=== PATIENT | female | born 1935 | race Caucasian/White ===

== ENCOUNTER 2017-03-02 17:48 | Outpatient (CLI) | payer MEDICARE, BC ==
--- NOTE | 2017-03-03 08:41 | XRAY Report ---
THREE-VIEW BILATERAL SHOULDERS: 03/02/2017 CLINICAL INDICATION: Shoulder pain. FINDINGS: Internal and external rotational views and scapular Y views of the bilateral shoulders wer e obtained. There is right worse than left glenohumeral osteoarthritis. Both humeral heads appear h igh-riding, suggestive of chronic rotator cuff tears. There is no evidence of fracture or dislocatio n. IMPRESSION: RIGHT WORSE THAN LEFT OSTEOARTHRITIS, WITH LIKELY BILATERAL CHRONIC ROTATOR CUFF TEARS. JOB #: [id number] EXT JOB #:[id number]
== END 2017-03-02 17:49 | disposition home or self-care (01) ==
LOC: DI 17:48
PROVIDERS: ATTEND Nurse Practitioner Family
DX: M19.012 Primary osteoarthritis, left shoulder (principal); M19.011 Primary osteoarthritis, right shoulder

== ENCOUNTER 2017-03-09 09:36 | Outpatient (CLI) | payer MEDICARE, BC ==
[2017-03-09] MEDS ORDERED: IOPAMIDOL-300 50 ML VIAL ONE (09:58)
[2017-03-09] MEDS ORDERED: IOPAMIDOL-300 100 ML VIAL ONE (09:58)
[2017-03-09] MEDS ORDERED: IOPAMIDOL-300 50 ML VIAL PO ONE (11:44)
[2017-03-09] MEDS ORDERED: IOPAMIDOL-300 100 ML VIAL IVP ONE (11:45)
--- NOTE | 2017-03-09 12:31 | CT Report ---
CT ABDOMEN AND PELVIS WITH CONTRAST: 03/09/2017 CLINICAL INDICATION: Abdominal pain. TECHNIQUE: Axial CT images of the abdomen and pelvis were obtained with 100 mL Isovue-300 intravenously as well as oral contrast. In accordance with CT protocol optimization, one or more of the following dose reduction techniques were utilized for this exam: automated exposure control, adjustment of mA and/or KV based on patient size, or use of iterative reconstructive technique. No previous CT is available for comparison. FINDINGS: Limited evaluation of the lung bases demonstrates mild atelectasis. Abdomen: The liver, spleen, pancreas, kidneys, and adrenal glands are unremarkable. The gallbladder is surgically absent. No bowel dilatation, free gas, or free fluid is present. No adenopathy is present. There is a splenule anterior to the inferior spleen. Multiple small anterior abdominal wall hernias are present, with hernia necks measuring up to 1 cm. These hernias contain fat. No bowel herniation is identified. Pelvis: Sigmoid diverticulosis is present, without CT evidence of diverticulitis. No pelvic adenopathy or free fluid is present. The pelvic organs appear unremarkable. Osseous structures demonstrate degenerative changes. IMPRESSION: MULTIPLE SMALL ANTERIOR ABDOMINAL WALL HERNIAS, CONTAINING FAT, WITHOUT EVIDENCE OF BOWEL HERNIATION. JOB #: [id number] EXT JOB #: [id number] SHAHANA
== END 2017-03-09 09:37 | disposition home or self-care (01) ==
LOC: LAB 09:36
PROVIDERS: ATTEND Nurse Practitioner Family
DX: K43.9 Ventral hernia without obstruction or gangrene (principal); I10 Essential (primary) hypertension
CPT/HCPCS: 36415; 74177; 82565; Q9967

== ENCOUNTER 2017-03-30 13:08 | Outpatient (CLI) | payer MEDICARE, BC ==
--- NOTE | 2017-03-31 08:47 | DEXA Report ---
DEXA: 03/30/2017 CLINICAL INDICATION: Osteopenia. TECHNIQUE: Dual energy x-ray absorptiometry (DXA) was performed on a [employer] system. Regions measured are the AP spine, femoral neck, and, if needed, forearm. COMPARISON: None. In accordance with the International Society for Clinical Densitometry (ISCD) guidelines, data from previous exams may be reanalyzed using current recommendations and techniques. This is done to allow a more accurate basis for comparison with the current study. FINDINGS Data for the lumbar spine is as follows: REGION BMD (g/cm/cm) T-SCORE Z-SCORE L1 0.976 -1.3 0.2 L2 0.950 -2.1 -0.6 L3 1.080 -1.0 0.5 L4 1.160 -0.3 1.1 TOTAL 1.037 -1.2 0.3 NOTE: All evaluable vertebrae are used for classification. Data for the hip is as follows: REGION BMD (g/cm/cm) T-SCORE Z-SCORE Neck 0.727 -2.2 -0.3 TOTAL 0.715 -2.3 -0.5 NOTE: The femoral neck or total proximal femur, whichever is lowest, is used for classification. IMPRESSION: THE WHO CLASSIFICATION BASED ON THE INTERNATIONAL REFERENCE STANDARD IS OSTEOPENIA. FRACTURE RISK IS INCREASED. RECOMMENDATION: Patients with diagnosis of osteoporosis or osteopenia should have regular bone mineral density assessment. For those eligible for Medicare, routine testing is allowed once every 2 years. Testing frequency can be increased for patients who have rapidly progressing disease or for those who are receiving medical therapy to restore bone mass. COMMENT: World Health Organization (WHO) definitions for osteoporosis and osteopenia: NORMAL BMD: T-score at -1.0 or higher, fracture risk is low. OSTEOPENIA BMD: T-score between -1.0 and -2.5, fracture risk is increased. OSTEOPOROSIS BMD: T-score at -2.5 or lower, fracture risk high. National Osteoporosis Foundation recommends: 1. Obtain adequate dietary calcium (at least 1200 mg per day) and vitamin D (400 -800 international units per day). 2. Participate, as appropriate, in regular weightbearing and muscle- strengthening exercise. 3. Avoid tobacco use and reduce alcohol and caffeine intake. 4. For more detailed information see the website at www.NOF.org. MTDD
== END 2017-03-30 13:09 | disposition home or self-care (01) ==
LOC: DI 13:08
PROVIDERS: ATTEND Nurse Practitioner Family
DX: M85.89 Other specified disorders of bone density and structure, multiple sites (principal); N95.8 Other specified menopausal and perimenopausal disorders
CPT/HCPCS: 77080

== ENCOUNTER 2017-03-30 13:08 | Outpatient (CLI) | payer MEDICARE, BC ==
--- NOTE | 2017-03-31 14:04 | Mammography Report ---
DIGITAL SCREENING MAMMOGRAM: 03/30/2017 CLINICAL INDICATION: An 82-year-old with history of benign biopsies for screening. COMPARISON: 12/2012, 05/2011, 12/2009 TECHNIQUE: Routine CC and MLO projections were obtained of the breasts. FINDINGS: The breasts again demonstrate scattered fibroglandular densities bilaterally. Positioning on the right is limited by patient's right shoulder mobility issues. Coarse and punctate, typically benign calcifications are present. Biopsy marker in the right breast is stable. No suspicious mass es, clustered microcalcifications, or regions of architectural distortion are identified. IMPRESSION: BENIGN FINDINGS. RECOMMENDATION: Routine annual screening unless otherwise clinically indicated. BIRADS CATEGORY 2 - BENIGN FINDINGS. STANDARD QUALIFYING STATEMENTS 1. This examination was reviewed with the aid of Computer-Aided Detection (CAD). 2. A negative or benign imaging report should not delay biopsy if clinically suspicious findings are present. Consider surgical consultation if warranted. More than 5% of cancers are not identified by i maging. 3. Dense breasts may obscure an underlying neoplasm. JOB #: [id number] EXT JOB #:[id number]
== END 2017-03-30 13:09 | disposition home or self-care (01) ==
LOC: DI 13:08
PROVIDERS: ATTEND Nurse Practitioner Family
DX: Z12.31 Encounter for screening mammogram for malignant neoplasm of breast (principal)
CPT/HCPCS: 77067

== ENCOUNTER 2017-04-15 10:58 | Emergency (ER) | payer MEDICARE, BC ==
[2017-04-15 11:39] VITALS: BP 123/79
[2017-04-15] MEDS ORDERED: DEXAMETHASONE 10 MG/ML VIAL PO STA (13:14)
--- NOTE | 2017-04-15 13:18 | ED Physician Documentation ---
PD HPI LOWER EXT INJURY - Stated complaint Stated Complaint: R LEG PX - Chief complaint Chief Complaint: Ext Problem - History obtained from History obtained from: Patient, Family - History of Present Illness PD HPI LOW EXT INJURY LOCATION: Right, Knee Type of injury: Other (standing a lot to fix food for thanksgivning) Where injury occurred: Home Timing - onset: How many days ago (2) Timing - duration: Days (2) Timing - details: Abrupt onset, Still present Improved by: Rest, Immobilization Worsened by: Moving, Palpating Associated symptoms: Swelling. No: Weakness, Numbness Contributing factors: No: Anticoagulated Similar symptoms before: Diagnosis (arthritis to the right knee) Recently seen: Not recently seen - Additional information Additional information: 82-year-old female with a history of arthritis to the right knee has developed markedly increased pain in her knee after standing to prepare food for Thanksgiving 2 days ago. She awoke yesterday morning with pain that was severe enough that she did take some leftover oxycodone. She has pain with weightbearing and pain with movement that is centered at the knee and she has pain all the way to her hip and from her foot up to her calf. She does not have pain up the back of her calf and she does not have swelling of her foot or ankle. Review of Systems Constitutional: denies: Fever Eyes: denies: Decreased vision Ears: denies: Ear pain Nose: denies: Congestion Throat: denies: Sore throat Respiratory: denies: Cough GI: denies: Vomiting PD PAST MEDICAL HISTORY - Past Medical History Past Medical History: Yes Cardiovascular: Hypertension Endocrine/Autoimmune: HyPOthyroidism, Other GI: GERD, Chronic constipation : Incontinence, Other Musculoskeletal: Rheumatoid arthritis, Other Derm: None - Past Surgical History Past Surgical History: Yes General: Cholecystectomy, Colonoscopy, EGD Ortho: Knee replacement /ASSEM[employer]ER [employer]CH[employer] ORDNANCE: Other - Present Medications Home Medications: Ambulatory Orders Medication Instructions Recorded Confirmed Cholecalciferol (Vitamin D3) 2,000 unit PO DAILY 08/01/13 11/06/13 [Vitamin D3] Folic Acid 1 mg PO DAILY 08/01/13 11/07/13 Levothyroxine Sodium [Synthroid] 125 mcg PO DAILY 08/01/13 11/06/13 Lisinopril [Zestril] 40 mg PO DAILY 08/01/13 11/07/13 Omeprazole [PriLOSEC] 20 mg PO DAILY 08/01/13 11/07/13 hydroCHLOROthiazide [Hydrodiuril] 25 mg PO DAILY 08/01/13 11/07/13 Vits A,C,E/Lutein/Minerals PO DAILY 11/06/13 11/06/13 [Ocuvite with Lutein Tablet] HYDROcod/ACETAM 5/325 [Lowes 5/325] 1 - 2 ea PO Q6H PRN #15 tablet 04/15/17 - Allergies Allergies/Adverse Reactions: Allergies Allergy/AdvReac Type Severity Reaction Status Date / Time diphenhydramine HCl * Allergy Rash Verified 04/15/17 11:39 [From Benadryl] Sulfa (Sulfonamide Allergy Rash Verified 04/15/17 11:39 Antibiotics) Latex, Natural Rubber AdvReac Unknown Verified 04/15/17 11:39 morphine AdvReac Emesis Verified 04/15/17 11:39 - Social History Does the pt smoke?: No Smoking Status: Never smoker Does the pt drink ETOH?: No Does the pt have substance abuse?: No - Immunizations Immunizations are current?: Yes - POLST Patient has POLST: No PD ED PE NORMAL - Vitals Vital signs reviewed: Yes - General General: No acute distress, Well developed/nourished - HEENT HEENT: Atraumatic, PERRL - Respiratory Respiratory: No respiratory distress - Derm Derm: Normal color, Warm and dry, No rash - Extremities Extremities: No deformity, Other (There is pain to palpation of the right knee and there is pain with ROM testing. The ligaments are stable and there does appear to be a small joint effusion. There is no tenderness or palpable cord to the posterior calf and the ankle is not swollen. Distal n/v is intact. ) - Neuro Neuro: No motor deficit, No sensory deficit, Normal speech Eye Opening: Spontaneous Motor: Obeys Commands Verbal: Oriented GCS Score: 15 - Psych Psych: Normal mood, Normal affect Results - Vitals Vitals: Vital Signs - 24 hr 04/15/17 11:33 Temperature 36.8 C Heart Rate 90 Respiratory 20 Rate Blood Pressure 123/79 O2 Saturation 93 Oxygen O2 Source Room air PD MEDICAL DECISION MAKING - ED course Complexity details: considered differential, d/w patient, d/w family ED course: 82-year-old female with a history of osteoarthritis in the right knee has spent much time on her feet preparing food for Thanksgiving and now has what appears to be reactive arthritis to her right knee. She is administered dexamethasone 10 mg orally. I have asked the patient to follow-up with orthopedics should she have continuation of her pain. She does take Naprosyn with food at home and she has had some oxycodone and does not like taking that. We will provide her with some small amount of hydrocodone. Departure - Departure Disposition: 01 Home, Self Care Clinical Impression: Reactive arthritis of knee Condition: Stable Instructions: ED Degenerative Joint Disease Follow-Up: Kelly Zafar ARNP [Primary Care Provider] - [facility] [Provider Group] Prescriptions: HYDROcod/ACETAM 5/325 [Lowes 5/325] 1 - 2 ea PO Q6H PRN #15 tablet PRN Reason: Pain
[2017-04-15] MEDS ORDERED: DEXAMETHASONE 10 MG/ML VIAL ONE (13:25)
== END 2017-04-15 13:35 | disposition home or self-care (01) ==
LOC: ED 10:58
DX: M02.361 Reiter's disease, right knee (principal); M06.9 Rheumatoid arthritis, unspecified; I10 Essential (primary) hypertension; E03.9 Hypothyroidism, unspecified; K21.9 Gastro-esophageal reflux disease without esophagitis
CPT/HCPCS: 99283

== ENCOUNTER 2017-09-12 18:49 | Outpatient (CLI) | payer MEDICARE, BC ==
--- NOTE | 2017-09-13 13:25 | XRAY Report ---
THREE VIEW RIGHT HAND: 09/12/2017 CLINICAL INDICATION: Chronic pain. FINDINGS: AP, lateral, oblique views of the right hand demonstrate osteoarthritis, worst at the first carpometacarpal joint. There is no evidence of acute fracture. No radiopaque foreign body is seen in the soft tissues. IMPRESSION: OSTEOARTHRITIS, WORST AT THE FIRST CARPOMETACARPAL JOINT. TD: 09/13/2017 13:24
== END 2017-09-12 18:50 | disposition home or self-care (01) ==
LOC: DI 18:49
PROVIDERS: ATTEND Nurse Practitioner Family
DX: M79.641 Pain in right hand (principal); M19.041 Primary osteoarthritis, right hand

== ENCOUNTER 2018-08-01 14:20 | Outpatient (CLI) | payer MEDICARE, BC ==
--- NOTE | 2018-08-01 15:32 | XRAY Report ---
Reason: DORSALGIA,UNSPECIFIED Procedure Date: 08/01/2018 Accession Number: [id number] / [id number] Procedure: XR - Thoracic Spine 2 View CPT Code: FULL RESULT: EXAM: THORACIC SPINE RADIOGRAPHY. EXAM DATE: 08/01/2018 02:39 PM. CLINICAL HISTORY: Dorsalgia, unspecified. COMPARISON: CHEST 2 VIEW PA/LAT 02/24/2016 2:33 PM. TECHNIQUE: 2 views. FINDINGS: Alignment: Normal. No spondylolisthesis or scoliosis. Bones: No fractures or bone lesions. Disks: Mild to moderate anterior and lateral osteophytes are noted of the mid and lower thoracic spine, greatest at T8-T9 and T9-T10. Appearance is similar to comparison chest x-ray from 2016. Disk spaces are relatively preserved for age. Soft Tissues: Normal. The visualized lungs and cardiomediastinal silhouette are normal. No appreciable paraspinous soft tissue swelling. IMPRESSION: Multilevel degenerative disk osteophyte commensurate with age. No fracture appreciated. RADIA
== END 2018-08-01 14:21 | disposition home or self-care (01) ==
LOC: DI 14:20
PROVIDERS: ATTEND Registered Nurse
DX: M25.78 Osteophyte, vertebrae (principal)
CPT/HCPCS: 72070

== ENCOUNTER 2018-10-25 18:44 | Outpatient (CLI) | payer MEDICARE, BC ==
--- NOTE | 2018-10-26 11:14 | XRAY Report ---
Reason: PAIN IN LEFT KNEE,PAIN IN LEFT ELBOW Procedure Date: 10/25/2018 Accession Number: [id number] / [id number] Procedure: XR - Shoulder 3 View RT CPT Code: FULL RESULT: EXAM: RIGHT SHOULDER RADIOGRAPHY EXAM DATE: 10/25/2018 07:36 PM. CLINICAL HISTORY: Pain in left knee, pain in left elbow. COMPARISON: SHOULDER 3 VIEW BILAT 03/02/2017 6:01 PM. TECHNIQUE: 3 views. FINDINGS: Bones: No acute fracture is detected. Joints: There are mild degenerative changes of the acromioclavicular joint and marked degenerative changes of the glenohumeral articulation which have progressed compared to 2017. Evaluation for dislocation is limited by suboptimal positioning on the Y view. Soft tissues: The visualized hemithorax is unremarkable. No soft tissue swelling. IMPRESSION: Interval progression of marked degenerative changes of the glenohumeral articulation. If there is concern for shoulder dislocation, the Y view should be repeated possibly with the addition of an axillary view if adequate positioning cannot be achieved. RADIA
--- NOTE | 2018-10-26 11:14 | XRAY Report ---
Reason: PAIN IN LEFT KNEE,PAIN IN LEFT ELBOW Procedure Date: 10/25/2018 Accession Number: [id number] / [id number] Procedure: XR - Knee 3 View LT CPT Code: FULL RESULT: EXAM: LEFT KNEE RADIOGRAPHY EXAM DATE: 10/25/2018 07:36 PM. CLINICAL HISTORY: Pain in left knee. COMPARISON: XR BILAT KNEES 3 VIEWS 08/15/2011. TECHNIQUE: 3 views. FINDINGS: Bones: The bones are qualitatively osteopenic; this limits evaluation for underlying fractures or masses. No fracture is detected. Joints: Interval left total knee arthroplasty. No subluxation. No significant joint effusion. Soft Tissues: Normal. No soft tissue swelling. IMPRESSION: Interval total knee arthroplasty and subjectively osteopenia. RADIA
--- NOTE | 2018-10-26 11:14 | XRAY Report ---
Reason: PAIN IN LEFT KNEE,PAIN IN LEFT ELBOW Procedure Date: 10/25/2018 Accession Number: [id number] / [id number] Procedure: XR - Elbow 3 View LT CPT Code: FULL RESULT: EXAM: LEFT ELBOW RADIOGRAPHY EXAM DATE: 10/25/2018 07:36 PM. CLINICAL HISTORY: Pain in left elbow. COMPARISON: None. TECHNIQUE: 2 views. FINDINGS: Bones: An orthopedic screw is seen traversing the olecranon. No acute fracture is detected. There are irregular-appearing possibly posttraumatic changes about the lateral epicondyle. Joints: Sensitivity for effusion is mildly limited by positioning. No significant effusion is detected. No subluxation. Soft Tissues: Normal. No soft tissue swelling. IMPRESSION: Irregular possibly posttraumatic appearance about the lateral epicondyle should be correlated focally for tenderness. RADIA
== END 2018-10-25 18:45 | disposition home or self-care (01) ==
LOC: DI 18:44
PROVIDERS: ATTEND Nurse Practitioner Family
DX: M25.562 Pain in left knee (principal); M25.522 Pain in left elbow; Z96.652 Presence of left artificial knee joint; M19.011 Primary osteoarthritis, right shoulder

== ENCOUNTER 2019-04-25 11:23 | Outpatient (CLI) | payer MEDICARE, BC ==
--- NOTE | 2019-04-25 17:23 | Ultrasound Report ---
Reason: HEART MURMUR, UNEQUAL BLOOD PRESSURE IN ARMS Procedure Date: 04/25/2019 Accession Number: [id number] / [id number] Procedure: US - Carotid Doppler Complete CPT Code: Final Report FULL RESULT: EXAM: BILATERAL CAROTID AND VERTEBRAL ARTERY DUPLEX DOPPLER ULTRASOUND: EXAM DATE: 04/25/2019 01:14 PM CLINICAL HISTORY: Heart murmur, unequal blood pressure in arms. COMPARISON: None. TECHNIQUE: Grayscale imaging, color Doppler, and duplex spectral Doppler were used to evaluate the carotid and vertebral arteries bilaterally. Static images were obtained. FINDINGS: There is mild heterogeneous atheromatous plaque within the bilateral carotid arteries. Normal antegrade flow is present in bilateral vertebral arteries. Subclavian arteries are patent. VELOCITIES (cm/sec): Right CCA mid: PSV 77 cm/sec CCA dist: PSV 51 cm/sec ICA prox: PSV 97 cm/sec, EDV 24 cm/sec ICA mid: PSV 100 cm/sec, EDV 29 cm/sec ICA dist: PSV 49 cm/sec, EDV 11 cm/sec ECA: PSV 60 cm/sec Vert: PSV 75 cm/sec ICA/CCA: 1.30 Subclavian: Proximal: 144.0 cm/s Mid: 128.0 cm/s Distal: 111.0 cm/s Left CCA mid: PSV 56 cm/sec CCA dist: PSV 52 cm/sec ICA prox: PSV 53 cm/sec, EDV 17 cm/sec ICA mid: PSV 94 cm/sec, EDV 25 cm/sec ICA dist: PSV 93 cm/sec, EDV 23 cm/sec ECA: PSV 66 cm/sec Vert: PSV 52 cm/sec ICA/CCA: 1.68 Subclavian: Proximal: 62 cm/s Mid: 62 cm/s Distal: 75 cm/s ICA diameter stenosis: Right: <50% by velocity and <70% by NASCET criteria. Left: <50% by velocity and <70% by NASCET criteria. IMPRESSION: 1. No significant bilateral carotid artery plaquing. 2. In the right carotid artery there are no elevated carotid artery velocities to suggest hemodynamically significant stenosis. 3. In the left carotid artery there are no elevated carotid artery velocities to suggest hemodynamically significant stenosis. 4. Normal antegrade flow is present in bilateral vertebral arteries. Bilateral subclavian arteries are patent. General Recommendations: Stenosis =50% ICA - Follow-up ultrasound 6-12 months Stenosis <50% ICA - High Risk Patient with plaque - Follow-up ultrasound 1-2 years Normal Study but High Risk Patient - Follow-up ultrasound 3-5 years Management recommendations and diagnostic criteria are based on current IAC endorsed standards in Carotid Artery Stenosis: Grayscale and Doppler Ultrasound Diagnosis. Validated velocity measurements with angiographic measurements and velocity criteria are extrapolated from diameter data as defined by the Society of Radiologists in Ultrasound Consensus Conference Radiology 2003; 229;340-346. RADIA
== END 2019-04-25 11:24 | disposition home or self-care (01) ==
LOC: DI 11:23
PROVIDERS: ATTEND Registered Nurse
DX: R01.1 Cardiac murmur, unspecified (principal); R09.89 Other specified symptoms and signs involving the circulatory and respiratory systems
CPT/HCPCS: 93306; 93880

== ENCOUNTER 2020-02-26 10:52 | Outpatient (CLI) | payer MEDICARE, BC ==
--- NOTE | 2020-02-26 15:34 | DEXA Report ---
PROCEDURE: Dexa Spine and/or Hip INDICATIONS: OSTEOPENIA TECHNIQUE: Dual energy x-ray absorptiometry (DXA) was performed on a [employer] System. Regions measur ed are the AP Spine, femoral neck, and if needed forearm. COMPARISON: 05/30/16 FINDINGS: Lumbar Spine: Bone Mineral Density 1.027 g/cm/cm,T score -1.2, unchanged. Left Hip: Bone Mineral Density 0.649 g/cm/cm,T score -2.8, compared to -2.3. Left Femoral Neck: Bone Mineral Density 0.599 g/cm/cm, T score -3.2, compared to -2.2 (T score greater or equal to -1.0: NORMAL) (T score from -1.1 to -2.4: OSTEOPENIA) (T score less than or equal to -2.5 to: OSTEOPOROSIS) Impression: Significant, progressive osteoporosis in the left femoral neck, severe osteopenia in the left hip. Patients with diagnosis of osteoporosis or osteopenia should have regular bone mineral density assess ment. For those eligible for Medicare, routine testing is allowed once every 2 years. Testing frequ ency can be increased for patients who have rapidly progressing disease or for those who are receivin g medical therapy to restore bone mass. Reviewed by: Ruthann Goss MD on 02/26/2020 3:32 PM PDT Approved by: Ruthann Goss MD on 02/26/2020 3:32 PM PDT Station ID: [id number]
== END 2020-02-26 10:53 | disposition home or self-care (01) ==
LOC: DI 10:52
PROVIDERS: ATTEND Internal Medicine Rheumatology
DX: M81.0 Age-related osteoporosis without current pathological fracture (principal); M85.88 Other specified disorders of bone density and structure, other site
CPT/HCPCS: 77080

== ENCOUNTER 2020-03-18 15:26 | Outpatient (CLI) | payer MEDICARE, BC ==
--- NOTE | 2020-03-18 16:38 | Ultrasound Report ---
PROCEDURE: No DVT found left leg. INDICATIONS: LOCIALIZED EDEMA TECHNIQUE: Real-time imaging, as well as color and pulse Doppler interrogation, were performed of the lower extr emity deep veins from the inguinal ligament to the popliteal fossa. COMPARISON: None. FINDINGS: The deep veins are normally compressible, and free of intraluminal thrombus. Color and pu lse Doppler demonstrate normal phasic intraluminal flow. There is normal augmentation response to di stal compression maneuver. IMPRESSION: No DVT found left leg. Reviewed by: Lance Mullen MD on 03/18/2020 4:37 PM PDT Approved by: Lance Mullen MD on 03/18/2020 4:37 PM PDT Station ID: [id number]
== END 2020-03-18 15:27 | disposition home or self-care (01) ==
LOC: DI 15:26
PROVIDERS: ATTEND Registered Nurse
DX: R60.0 Localized edema (principal)

== ENCOUNTER 2020-05-09 07:00 | Outpatient (CLI) | payer MEDICARE, BC | END 2020-05-09 23:59 | disposition home or self-care (01) | LOC: LAB.R 07:00 | PROVIDERS: ATTEND Physician Assistant Medical | DX: M54.5 Low back pain (principal) | CPT/HCPCS: 87086 ==

== ENCOUNTER 2020-11-24 10:44 | Outpatient (CLI) | payer MEDICARE, BC ==
--- NOTE | 2020-11-24 14:19 | DEXA Report ---
PROCEDURE: Dexa Spine and/or Hip INDICATIONS: OSTEOPOROSIS TECHNIQUE: Dual energy x-ray absorptiometry (DXA) was performed on a [employer] System. Regions measur ed are the AP Spine, femoral neck, and if needed forearm. COMPARISON: DEXA 02/26/2020 FINDINGS: Lumbar Spine: Bone Mineral Density 1.033 g/cm/cm,T score -1.2, unchanged Left Hip: Bone Mineral Density 0.629 g/cm/cm,T score -3.0, compared to -2.8 Left Femoral Neck: Bone Mineral Density 0.638 g/cm/cm, T score -2.8, compared to -3.2 (T score greater or equal to -1.0: NORMAL) (T score from -1.1 to -2.4: OSTEOPENIA) (T score less than or equal to -2.5 to: OSTEOPOROSIS) Impression: Persistent osteoporosis within the left hip and femoral neck, progressive in the hip and mildly improved in the femoral neck. Patients with diagnosis of osteoporosis or osteopenia should have regular bone mineral density assess ment. For those eligible for Medicare, routine testing is allowed once every 2 years. Testing frequ ency can be increased for patients who have rapidly progressing disease or for those who are receivin g medical therapy to restore bone mass. Reviewed by: Ruthann Goss MD on 11/24/2020 2:17 PM PDT Approved by: Ruthann Goss MD on 11/24/2020 2:17 PM PDT Station ID: [id number]
== END 2020-11-24 10:45 | disposition home or self-care (01) ==
LOC: DI 10:44
PROVIDERS: ATTEND Internal Medicine Rheumatology
DX: M81.0 Age-related osteoporosis without current pathological fracture (principal); Z79.83 Long term (current) use of bisphosphonates

== ENCOUNTER 2020-12-15 15:07 | Outpatient (CLI) | payer MEDICARE, BC ==
--- NOTE | 2020-12-15 15:55 | XRAY Report ---
PROCEDURE: Thoracic Spine 2 View INDICATIONS: THORACIC BACK PAIN TECHNIQUE: 3 views of the thoracic spine were acquired. COMPARISON: None. FINDINGS: Bones: No fractures or dislocations. No suspicious bony lesions. 12 pairs of ribs are noted, and a ppear intact where visualized. Soft tissues: No paravertebral stripe thickening. IMPRESSION: There is a moderate degree of degenerative disc disease along the thoracic spine, without subluxation or compression fracture associated. A source of new onset back pain is not seen. This pattern extend s cephalad into the low cervical spine and caudad into the lumbosacral spine. Reviewed by: Lance Mullen MD on 12/15/2020 3:54 PM PDT Approved by: Lance Mullen MD on 12/15/2020 3:54 PM PDT Station ID: [id number]
== END 2020-12-15 15:08 | disposition home or self-care (01) ==
LOC: DI 15:07
PROVIDERS: ATTEND Physician Assistant
DX: M51.34 Other intervertebral disc degeneration, thoracic region (principal)

== ENCOUNTER 2021-07-29 02:07 | Outpatient (CLI) | payer MEDICARE, BC | END 2021-07-29 02:08 | disposition critical access hospital (66) | LOC: EMS 02:07 | DX: R47.81 Slurred speech (principal); R29.810 Facial weakness; R26.2 Difficulty in walking, not elsewhere classified | CPT/HCPCS: A0425; A0429 ==

== ENCOUNTER 2021-07-29 02:19 | Inpatient (IN) | payer MEDICARE, BC ==
[2021-07-29] MEDS ORDERED: SODIUM CHLORIDE 0.9% 500 ML IV STA (02:33)
--- NOTE | 2021-07-29 02:39 | ED Physician Documentation ---
History of Present Illness - Stated complaint Stated Complaint: FACIAL DROOP, TONGUE SWELLING, DIFF SPEAKING - Chief complaint Chief Complaint: Neuro - History obtained from History obtained from: Patient, Family (daughter) - Additonal information Additional information: 86yF with pmh high blood pressure, family history of stroke, presents with sensation of tongue swelling starting at 9 PM and possible left-sided weakness developing sometime during the night. Of note patient has significant OA and L humerus fracture. Daughter reports that the patient had a very distressing day after meeting with some people who wanted to david her. Patient states that she had been feeling off after the meeting and then around 9 PM developed the sensation of tongue swelling as well as intermittent nausea and and dizziness. She tried to go to sleep but had leg cramping that kept her awake and so called her daughter and said that she did not feel good and wanted to go to the emergency department. EMS found her to be hypertensive on scene with normal fingerstick and otherwise normal vitals. They reported possible facial droop that appeared to resolve upon arrival to ED. Review of Systems Ten Systems: 10 systems reviewed and negative Constitutional: denies: Fever, Chills Cardiac: denies: Chest pain / pressure Respiratory: reports: Dyspnea GI: reports: Nausea. denies: Abdominal Pain, Vomiting, Diarrhea : denies: Dysuria Musculoskeletal: denies: Back pain Neurologic: reports: Generalized weakness, Other (dizziness). 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 - Present Medications Home Medications: Ambulatory Orders Medication Instructions Recorded Confirmed Cholecalciferol (Vitamin D3) 2,000 unit PO DAILY 08/01/13 07/29/21 [Vitamin D3] Folic Acid 1 mg PO DAILY 08/01/13 07/29/21 Levothyroxine Sodium [Synthroid] 125 mcg PO DAILY 08/01/13 07/29/21 Omeprazole [PriLOSEC] 20 mg PO DAILY 08/01/13 07/29/21 lisinopriL [Zestril] 40 mg PO DAILY 08/01/13 07/29/21 Vits A,C,E/Lutein/Minerals 1 tablet PO DAILY 11/06/13 07/29/21 [Ocuvite with Lutein Tablet] Acetaminophen [Tylenol] 650 mg PO Q6H PRN 07/29/21 07/29/21 Prednisone [Eliecer] 3 mg PO DAILY 07/29/21 07/29/21 - Allergies Allergies/Adverse Reactions: Allergies Allergy/AdvReac Type Severity Reaction Status Date / Time diphenhydramine HCl * Allergy Rash Verified 07/29/21 02:26 [From Benadryl] Sulfa (Sulfonamide Allergy Rash Verified 07/29/21 02:26 Antibiotics) Latex, Natural Rubber AdvReac Unknown Verified 07/29/21 02:26 morphine AdvReac Emesis Verified 07/29/21 02:26 - Social History Does the pt smoke?: No Smoking Status: Never smoker Does the pt drink ETOH?: No Does the pt have substance abuse?: No - Immunizations Immunizations are current?: Yes - POLST Patient has POLST: No PD ED PE NORMAL - Vitals Vital signs reviewed: Yes - General General: No acute distress, Well developed/nourished, Other (alert and oriented. elderly appearing) - HEENT HEENT: Atraumatic, PERRL, EOMI - Neck Neck: Supple, no meningeal sign - Cardiac Cardiac: RRR - Respiratory Respiratory: No respiratory distress, Clear bilaterally - Abdomen Abdomen: Non tender, Non distended - Back Back: No CVA TTP - Derm Derm: Normal color, Warm and dry - Extremities Extremities: No deformity - Neuro Neuro: Alert and oriented X 3, incident commander 2-12 intact, No motor deficit, No sensory deficit, Normal speech, Other (normal cerebellar testing. symmetric diminished strength BL upper and LE. possible subtle L lower facial droop) Eye Opening: Spontaneous Motor: Obeys Commands Verbal: Oriented GCS Score: 15 - Psych Psych: Normal mood, Normal affect Results - Vitals Vitals: Vital Signs - 24 hr 07/29/21 07/29/21 07/29/21 02:26 02:38 03:00 Temperature 36.6 C Heart Rate 79 72 Respiratory 15 15 Rate Blood Pressure 208/84 H 183/77 H O2 Saturation 96 98 96 07/29/21 07/29/21 07/29/21 03:49 04:00 04:16 Temperature Heart Rate 74 74 81 Respiratory 14 18 16 Rate Blood Pressure 206/81 H O2 Saturation 96 96 96 07/29/21 07/29/21 04:30 05:00 Temperature Heart Rate 72 69 Respiratory 20 17 Rate Blood Pressure 191/77 H 186/78 H O2 Saturation 96 97 Oxygen O2 Source Room air - EKG (time done) 0236 Rate: Rate (enter#) (69) Rhythm: NSR [place]: Normal Intervals: Normal NC QRS: Normal Ischemia: Other (no ischemic changes) - Labs Labs: Laboratory Tests 07/29/21 07/29/21 02:35 02:35 WBC 4.8 RBC 4.19 L Hgb 12.5 Hct 37.0 MCV 88.3 MCH 29.8 MCHC 33.8 RDW 12.9 Plt Count 197 MPV 9.8 Neut # (Auto) 2.9 Lymph # (Auto) 1.2 L [place] # (Auto) 0.6 Eos # (Auto) 0.1 Baso # (Auto) 0.1 Absolute Nucleated RBC 0.00 Nucleated RBC % 0.0 Sodium 138 Potassium 4.2 Chloride 106 Carbon Dioxide 23 Anion Gap 9.0 BUN 27 H Creatinine 0.9 Estimated GFR (MDRD) 60 L Glucose 131 H Calcium 9.4 Total Bilirubin 0.6 AST 15 ALT 12 Alkaline Phosphatase 35 L Total Protein 6.0 L Albumin 3.7 Globulin 2.3 Albumin/Globulin Ratio 1.6 Lipase 42 PD MEDICAL DECISION MAKING - ED course ED course: 86yF p/w dizziness, tongue swelling/numbness sensation, possible facial droop and L sided weakness, now improved. patient not a candidate for tPA given outside 4.5 h window and also with improving symptoms. will undertake TIA workup. Patient stating she is experiencing significant pain in L arm and shoulder as well as generalized body aches she attributes to her OA and polymyalgia, improving with tylenol and oxycodone. still with subtle L facial droop per daughter. d/w Dr. Cox, telestroke real estate salesperson (marcos gonzalez) - he agrees patient is not a tPA candidate, unlikely large vessel occlusion given symptoms, good candidate for admission here for MRI and medical optimization. He will look over CTA images and confirm no large vessel occlusion. d/w Dr. Cox - no LVO. Recommend ASA 324 now. Recommend add plavix for 21 days after MRI. likely will need cardiac monitoring in addition to echo as well. Departure - Departure Clinical Impression: Dizziness, Tongue burning sensation, Weakness, Facial droop, Hypertension Condition: Stable
[2021-07-29 02:40] LABS: BASOPHILS # (AUTO) 0.1 10^3/uL (0.0-0.1); EOSINOPHILS # (AUTO) 0.1 10^3/uL (0.0-0.7); HGB - HEMOGLOBIN 12.5 g/dL (12.0-16.0); LYMPHOCYTES # (AUTO) 1.2 10^3/uL (1.5-3.5); LYMPHOCYTES % (AUTO) 24.9 %; MEAN CORPUSCULAR HEMOGLOBIN 29.8 pg (27.0-31.0); MEAN CORPUSCULAR HGB CONC 33.8 g/dL (32.0-36.0); MEAN CORPUSCULAR VOLUME 88.3 fL (81.0-99.0); MEAN PLATELET VOLUME 9.8 fL (7.9-10.8); MONOCYTES # (AUTO) 0.6 10^3/uL (0.0-1.0); MONOCYTES % (AUTO) 11.5 %; NEUTROPHILS # (AUTO) 2.9 10^3/uL (1.5-6.6); NEUTROPHILS % (AUTO) 61.4 %; PLT - PLATELET COUNT 197 10^3/uL (130-450); RED BLOOD COUNT 4.19 10^6/uL (4.20-5.40); RED CELL DISTRIBUTION WIDTH 12.9 % (12.0-15.0); WHITE BLOOD COUNT 4.8 x10^3/uL (4.8-10.8)
[2021-07-29] MEDS ORDERED: IOVERSOL 320 100 ML VIAL IVP ONE ×2 (02:45→04:02)
[2021-07-29 03:17] LABS: ALBUMIN 3.7 g/dL (3.2-5.5); ALBUMIN/GLOBULIN RATIO 1.6 (1.0-2.2); BILIRUBIN,TOTAL 0.6 mg/dL (0.2-1.0); CALCIUM 9.4 mg/dL (8.5-10.3); CREATININE 0.9 mg/dL (0.4-1.0); POTASSIUM 4.2 mmol/L (3.5-5.0)
[2021-07-29] MEDS ORDERED: ACETAMINOPHEN 325 MG TABLET PO STA (04:07)
[2021-07-29] MEDS ORDERED: oxyCODONE 5 MG TABLET PO STA (04:43)
[2021-07-29] MEDS ORDERED: ASPIRIN 325 MG TABLET PO STA (05:08)
[2021-07-29 06:10] LABS: B. PARAPERTUSSIS- RESP PCR PAN NOT DETECTED; B. PERTUSSIS- RESP PCR PANEL NOT DETECTED; C. PNEUMONIAE- RESP PCR PANEL NOT DETECTED; CORONAVIRUS 229E-RESP PCR NOT DETECTED; CORONAVIRUS HKU1-RESP PCR NOT DETECTED; CORONAVIRUS NL63-RESP PCR NOT DETECTED; CORONAVIRUS OC43-RESP PCR NOT DETECTED; HUMAN METAPNEUMOVIRUS NOT DETECTED; INFLUENZA A- RESP PCR PANEL NOT DETECTED; INFLUENZA B - RESP PCR PANEL NOT DETECTED; M. PNEUMONIAE- RESP PCR PANEL NOT DETECTED; PARAINFLUENZA VIRUS 1 NOT DETECTED; PARAINFLUENZA VIRUS 2 NOT DETECTED; PARAINFLUENZA VIRUS 3 NOT DETECTED; PARAINFLUENZA VIRUS 4 NOT DETECTED; RHINOVIRUS/ENTEROVIRUS NOT DETECTED; RSV- RESP PCR PANEL NOT DETECTED; SARS-CoV-2 -RESP PCR PANEL NOT DETECTED
[2021-07-29] MEDS ORDERED: SODIUM CHLORIDE FLUSH 0.9% 10 ML SYRINGE IVP PRN (06:24)
[2021-07-29 07:00] LABS: CHOL/HDL RATIO 3.3 (<4.4); CHOLESTEROL 156 mg/dL; HDL CHOLESTEROL 48 mg/dL; LDL CHOLESTEROL,CALCULATED 98 mg/dL; TRIGLYCERIDES 49 mg/dL; VLDL CHOLESTEROL 10 mg/dL
[2021-07-29 07:03] LABS: PT - PROTHROMBIN TIME 11.1 secs (9.9-12.6)
--- NOTE | 2021-07-29 07:47 | CT Report ---
PROCEDURE: ANGIO HEAD W/WO INDICATIONS: tongue swelling/numbness, L side weak CONTRAST: IV CONTRAST: Optiray 320 ml: 80 PO CONTRAST: *NO PO CONTRAST TECHNIQUE: Precontrast 4.5 mm thick angled axial sections acquired from the foramen magnum to the vertex. Afte r the administration of intravenous contrast, 1 mm thick sections acquired through the [place] of [place] is. Postcontrast 4.5 mm thick sections then re-acquired from the foramen magnum to the vertex. 3-di mensional qdnicjr-czkamlzyf-cuwzknezxi (MIP) and/or volume rendering reformats were acquired of the c entral intracranial vasculature. For radiation dose reduction, the following was used: automated ex posure control, adjustment of mA and/or kV according to patient size. COMPARISON: None FINDINGS: Image quality: Excellent. Anterior circulation: Intracranial internal carotid arteries are normal in flow. Atherosclerotic bárbara cifications noted in the cavernous and clinoid segments of the internal carotid arteries bilaterally which causes mild narrowing of the vessels. The flow within the paired anterior cerebral arteries is normal and symmetric. The flow within the middle cerebral arteries is normal. Moderate atelectatic n arrowing of the distal M1 segment of the right middle 2 artery. Normal flow noted in the M2 segments of the right middle cerebral artery. The anterior communicating artery is seen. No aneurysms are see n. Posterior circulation: Visualized portions of the vertebral arteries demonstrate normal caliber, and join to form a normal appearing basilar artery. Flow within the posterior cerebral arteries is norm al and symmetric. No aneurysms are seen. Dural sinuses demonstrate normal postcontrast enhancement. CSF spaces: Ventricles are normal in size and shape. Basal cisterns are patent. No extra-axial flu id collections. Brain: No midline shift. No intracranial bleeds or masses. Duran-white matter interface appears int act. There is moderate, diffuse cerebral volume loss. There are moderate to severe periventricular an d subcortical white matter chronic microvascular ischemic changes. Skull and face: Calvarium and facial bones appear intact, without suspicious lesions. Sinuses: Visualized sinuses and mastoids are clear. IMPRESSION: 1. No acute intracranial disease process. 2. No large vessel occlusion, hemodynamically significant vascular stenosis, vascular dissection or a neurysm. Reviewed by: Beatriz Schmid MD, PhD on 07/29/2021 7:46 AM PST Approved by: Beatriz Schimd MD, PhD on 07/29/2021 7:46 AM [facility] Station ID: [id number]
--- NOTE | 2021-07-29 07:55 | CT Report ---
PROCEDURE: ANGIO NECK W INDICATIONS: tongue numb/tingling, possible facial drop, L weak CONTRAST: IV CONTRAST: Optiray 320 ml: 80 PO CONTRAST: *NO PO CONTRAST TECHNIQUE: After the administration of intravenous contrast, 1.5 mm axial sections acquired from the aortic arch to the [place] of [place]. Coronal 3-D maximum intensity projection (MIP) and/or volume rendering ref ormats were then performed. For radiation dose reduction, the following was used: automated exposur e control, adjustment of mA and/or kV according to patient size. COMPARISON: None. FINDINGS: Image quality: Excellent. Carotid system: The great vessels demonstrate a bovine variant anatomy as they arise from the aortic arch. The origins of the common carotid arteries appear patent. The common carotid arteries demons trate normal calibers and courses. After static calcification noted in the origins of the internal ca rotid arteries bilaterally which causes less than 50% stenosis of the vessels. Soft calcified atheros clerotic plaque of the proximal left subclavian artery which causes mild narrowing of the vessel. Posterior circulation: The origin of the right tube artery is fully patent. Soft and calcified plaqu e noted in the origin of the left vertebral artery which causes [id number] narrowing of the ves bud. The more superior portions of the vertebral arteries demonstrate normal course and caliber. The y join to form a normal appearing basilar artery. Soft tissues: Visualized neck soft tissues demonstrate no suspicious abnormalities. The thyroid is normal in size and there are no incidental findings. Severe emphysematous disease noted in the lungs bilaterally Bones: No suspicious bony lesions. Spine degenerative disc disease and facet arthropathy are noted. Visualized cervical spine appears normally aligned. IMPRESSION: No large vessel occlusion, hemodynamically significant vascular stenosis, vascular dissection or aneu rysm. The estimate of stenosis included in the report of the imaging study was calculated using the NASCET method Reviewed by: Beatriz Schmid MD, PhD on 07/29/2021 7:54 AM PST Approved by: Beatriz Schmid MD, PhD on 07/29/2021 7:54 AM PST Station ID: [id number]
[2021-07-29] MEDS: ONDANSETRON 4 MG/2 ML VIAL IVP PRN (07:59)
[2021-07-29] MEDS ORDERED: hydrALAZINE INJ 20 MG/ML VIAL IVP PRN (08:46)
[2021-07-29] MEDS ORDERED: NON FORMULARY MED (Omeprazole [Prilosec] 20 MG Capsule) PO SCH (09:00)
[2021-07-29] MEDS ORDERED: LORazepam 2 MG/ML VIAL IVP STA (09:14)
[2021-07-29] MEDS: PANTOPRAZOLE 40 MG TABLET PO SCH (09:18)
[2021-07-29] MEDS: predniSONE 5 MG TABLET PO SCH (09:19)
[2021-07-29] MEDS: LEVOTHYROXINE 125 MCG TABLET PO SCH (09:19)
--- NOTE | 2021-07-29 09:19 | HISTORY & PHYSICAL EXAMINATION ---
Chief Complaint - Chief Complaint Chief Complaint: left side weakness, facial droop, slurred speach History of Present Illness - Admitted From Admitted From:: medical floor - History Obtained From Records Reviewed: [facility], ER notes History obtained from: pt and pt's daughter at the bedside Exam Limitations: no - History of Present Illness HPI Comment/Other: This is a 86 years old female with a past medical history significant noted for hypertension, rheumatoid arthritis on low dosage prednisone, GERD, Hypothyroidism, Who present to the ER complain of left facial droop, slurring speech, and left-sided weakness. pt present significant slurred speech now. her daughter at the bedside help her mother. She report pt start with facial droop and tongue numbness at 6pm on yesterday afternoon, then her condition persistent and worsening, which brought her to ER for evaluation. Beside of her left facial droop and slurred speech, she also present left side upper and lower Extremity weakness. Patient believe she has a stroke. CTA of head and neck Show no acute intracranial disease process, no large vessel occlusion, Hemodynamically significant only vascular stenosis, Vascular dissection or aneurysm. Given above medical conditions, medical team was consulted for admission. Discussed the care goal with patient and her daughter at the bedside, patient hope to have DNR. 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 Her mother from congestive heart failure, patient's sister from stroke. Social History Notes: Patient denies history of cigarette smoking, alcohol issue, drug issue - POLST Patient has POLST: No Meds/Allgy - Home Medications Home Medications: Ambulatory Orders Medication Instructions Recorded Confirmed Cholecalciferol (Vitamin D3) 2,000 unit PO DAILY 08/01/13 07/29/21 [Vitamin D3] Folic Acid 1 mg PO DAILY 08/01/13 07/29/21 Levothyroxine Sodium [Synthroid] 125 mcg PO DAILY 08/01/13 07/29/21 Omeprazole [PriLOSEC] 20 mg PO DAILY 08/01/13 07/29/21 lisinopriL [Zestril] 40 mg PO DAILY 08/01/13 07/29/21 Vits A,C,E/Lutein/Minerals 1 tablet PO DAILY 11/06/13 07/29/21 [Ocuvite with Lutein Tablet] Acetaminophen [Tylenol] 650 mg PO Q6H PRN 07/29/21 07/29/21 Prednisone [Eliecer] 3 mg PO DAILY 07/29/21 07/29/21 - Allergies Allergies/Adverse Reactions: Allergies Allergy/AdvReac Type Severity Reaction Status Date / Time diphenhydramine HCl * Allergy Rash Verified 07/29/21 02:26 [From Benadryl] Sulfa (Sulfonamide Allergy Rash Verified 07/29/21 02:26 Antibiotics) Latex, Natural Rubber AdvReac Unknown Verified 07/29/21 02:26 morphine AdvReac Emesis Verified 07/29/21 02:26 Review of Systems - Constitutional Constitutional: denies: Fever, Chills - Eyes Eyes: denies: Pain - Ears, Nose & Throat Ears, Nose & Throat: denies: Ear pain - Cardiovascular Cariovascular: denies: Palpitations, Chest pain - Respiratory Respiratory: denies: Cough, SOB at rest, SOB with exertion - Gastrointestinal Gastrointestinal: denies: Abdominal pain, Nausea, Vomiting - Musculoskeletal Musculoskeletal: reports: Limited range of motion (on left shoulder) - Neurological Neurological: reports: Focal weakness, Numbness, Abnormal gait, Incoordination, Slurred speech. denies: Seizures Exam - Vital Signs Vital Signs: Vital Signs x48h Temp Pulse Pulse Resp BP BP BP 07/29/21 07:10 36.7 C 65 18 155/79 H 199/60 H 07/29/21 06:30 66 15 153/57 H 07/29/21 06:00 66 13 164/65 H 07/29/21 05:31 66 17 168/76 H 07/29/21 05:00 69 17 186/78 H 07/29/21 04:30 72 20 191/77 H 07/29/21 04:16 81 16 07/29/21 04:00 74 18 206/81 H 07/29/21 03:49 74 14 07/29/21 03:00 72 15 183/77 H 07/29/21 02:38 07/29/21 02:26 36.6 C 79 15 208/84 H Pulse Ox 07/29/21 07:10 99 07/29/21 06:30 95 07/29/21 06:00 93 07/29/21 05:31 96 07/29/21 05:00 97 07/29/21 04:30 96 07/29/21 04:16 96 07/29/21 04:00 96 07/29/21 03:49 96 07/29/21 03:00 96 07/29/21 02:38 98 07/29/21 02:26 96 - Physical Exam General Appearance: positive: Alert, Mild distress. negative: Lethargic Eyes Bilateral: positive: Normal inspection, No lid inflammation ENT: positive: ENT inspection nml, No signs of dehydration. negative: Dry mucous membranes Neck: positive: Nml inspection, Trachea midline. negative: Tracheal deviation Respiratory: positive: Chest non-tender, No respiratory distress. negative: Wheezes Cardiovascular: positive: Regular rate & rhythm. negative: Tachycardia, Bradycardia, Systolic murmur Peripheral Pulses: positive: 2+ Abdomen: positive: Non-tender, Nml bowel sounds, No distention. negative: Tenderness Back: positive: Nml inspection Skin: positive: Color nml, Warm, Dry. negative: Cyanosis Extremities: positive: Non-tender, Nml appearance, No pedal edema Neurologic/Psychiatric: positive: Oriented x3, Weakness, Sensory loss, Facial droop, Slurred/abnml speech. negative: Motor nml, Sensation nml, Depressed mood/affect Sepsis Event Note (H) - Evaluation Current Stage of Sepsis: Ruled out Conclusion/Plan - Problem List (1) Stroke-like symptom Conclusion/Plan: Patient present slurring speech, left facial droop, left upper and lower extremi ty weakness, Which all suggestion patient had a stroke. We will finish MRI of brain and echo study. We will start with baby aspirin, Plavix, Lipitor. We will start with PT, OT, ST. We will allow Rise of the blood pressure for first 24 hours. We will continue neur check. We will consult social work for disposition (2) Hypertension Conclusion/Plan: Patient take lisinopril in the home, we will hold lisinopril now because the patient's stroke. We added hydralazine as needed. (3) Hypothyroidism Conclusion/Plan: Patient's TSH is normal, we will resume patient Synthroid (4) Chronic rheumatic arthritis Conclusion/Plan: Patient had chronic rheumatoid arthritis, patient take low dosage prednisone in the home, we will resume, we will have pain control for patient (5) GERD (gastroesophageal reflux disease) Conclusion/Plan: We will resume home Protonix. - Lab Results Fish Bones: 07/29/21 02:35 07/29/21 02:35 Core Measures - Anticipated LOS I expect patient to be DC'd or transferred within 96 hours.: Yes - DVT/VTE - Prophylaxis VTE/DVT Device ordered at admit?: Yes VTE/DVT Prophylaxis med ordered at admit?: Yes
[2021-07-29] MEDS: CLOPIDOGREL 75 MG TABLET PO SCH (09:20)
[2021-07-29] MEDS: SODIUM CHLORIDE FLUSH 0.9% 10 ML SYRINGE IVP SCH ×2 (09:22→15:46)
[2021-07-29] MEDS ORDERED: oxyCODONE 5 MG TABLET PO PRN (09:26)
[2021-07-29] MEDS ORDERED: GADOBUTROL 7.5 MMOL/7.5 ML VIAL ONE (11:44)
[2021-07-29] MEDS: ACETAMINOPHEN 325 MG TABLET PO PRN ×2 (15:46→20:58)
[2021-07-29] MEDS ORDERED: GADOBUTROL 7.5 MMOL/7.5 ML VIAL IVP ONE (16:47)
--- NOTE | 2021-07-29 16:59 | MRI Report ---
PROCEDURE: Angio Brain W/O (MRA) INDICATIONS: TIA TECHNIQUE: Noncontrast axial 3-D [id number] MR angiogram, with 3-dimensional maximum intensity projection (M IP) reformats of the internal carotid arteries and posterior circulation then performed. COMPARISON: None. FINDINGS: Image quality: Excellent. Anterior circulation: Intracranial internal carotid arteries demonstrate normal size and intralumina l flow signal. The flow within the paired anterior cerebral arteries is normal and symmetric. The f low within the middle cerebral arteries is normal and symmetric. The anterior communicating artery i s seen. No stenoses, occlusions, or aneurysms. Posterior circulation: Visualized portions of the vertebral arteries demonstrate normal caliber, and join to form a normal appearing basilar artery. The flow within the posterior cerebral arteries is normal and symmetric. No stenoses, occlusions, or aneurysms. IMPRESSION: Unremarkable MR angiogram the brain. No large vessel occlusion, aneurysm or vascular malformation Reviewed by: Felice Wong MD on 07/29/2021 3:57 PM [facility] Approved by: Felice Wong MD on 07/29/2021 3:57 PM [facility] Station ID: [id number]
--- NOTE | 2021-07-29 17:08 | MRI Report ---
PROCEDURE: MRI brain with and without contrast INDICATIONS: Transient ischemic attack CONTRAST: IV CONTRAST: Gadavist ml: 7.4 TECHNIQUE: Noncontrast axial T1 spin echo, axial T2 fast spin echo, sagittal and axial FLAIR, coronal T2 fast sp in echo, axial gradient echo, axial diffusion and ADC through the brain. After the administration of contrast, axial and coronal T1 spin echo with fat saturation through the brain. COMPARISON: None. FINDINGS: Image quality: Excellent. CSF spaces: Basal cisterns are patent. No extra-axial fluid collections. Ventricles are normal in size and shape. Brain: No midline shift. No intracranial bleeds or masses. No abnormal intracranial enhancement. There is cerebral volume loss for age. There is periventricular white matter chronic small vessel is chemic change. The brainstem appears normal. Normal intravascular flow voids are present. Moderate atrophy and multifocal and confluent white matter chronic ischemic change. Focal restricted diffusion noted in the right lentiform nucleus Skull and face: Calvarial marrow is normal in signal. Orbits appear normal. Bilateral intraocular lens replacements noted. Incidental hyperostosis frontalis interna noted. Sinuses: Sinuses and mastoids appear clear. IMPRESSION: 1. 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 2. Atrophy and chronic ischemic change Reviewed by: Felice Wong MD on 07/29/2021 4:06 PM [facility] Approved by: Felice Wong MD on 07/29/2021 4:06 PM [facility] Station ID: [id number]
[2021-07-29] MEDS: ATORVASTATIN 40 MG TABLET PO SCH (20:56)
[2021-07-30] MEDS: SODIUM CHLORIDE FLUSH 0.9% 10 ML SYRINGE IVP SCH ×3 (02:09→21:48)
[2021-07-30] MEDS: ACETAMINOPHEN 325 MG TABLET PO PRN ×4 (02:14→21:44)
[2021-07-30 05:08] LABS: BASOPHILS % (AUTO) 0.7 %; EOSINOPHILS # (AUTO) 0.1 10^3/uL (0.0-0.7); EOSINOPHILS % (AUTO) 1.7 %; HCT - HEMATOCRIT 36.8 % (37.0-47.0); HGB - HEMOGLOBIN 12.3 g/dL (12.0-16.0); LYMPHOCYTES # (AUTO) 1.1 10^3/uL (1.5-3.5); LYMPHOCYTES % (AUTO) 19.9 %; MEAN CORPUSCULAR HEMOGLOBIN 29.8 pg (27.0-31.0); MEAN CORPUSCULAR HGB CONC 33.4 g/dL (32.0-36.0); MEAN CORPUSCULAR VOLUME 89.1 fL (81.0-99.0); MEAN PLATELET VOLUME 9.7 fL (7.9-10.8); MONOCYTES # (AUTO) 0.6 10^3/uL (0.0-1.0); MONOCYTES % (AUTO) 11.2 %; NEUTROPHILS # (AUTO) 3.6 10^3/uL (1.5-6.6); NEUTROPHILS % (AUTO) 66.3 %; PLT - PLATELET COUNT 179 10^3/uL (130-450); RED BLOOD COUNT 4.13 10^6/uL (4.20-5.40); WHITE BLOOD COUNT 5.4 x10^3/uL (4.8-10.8)
[2021-07-30 05:19] LABS: CREATININE 0.9 mg/dL (0.4-1.0)
[2021-07-30] MEDS: PANTOPRAZOLE 40 MG TABLET PO SCH (06:45)
[2021-07-30] MEDS: LEVOTHYROXINE 125 MCG TABLET PO SCH (06:45)
--- NOTE | 2021-07-30 07:46 | PROVIDER PROGRESS NOTE ---
Assessment/Plan - Problem List (1) Stroke Assessment/Plan: 07/30 MRI of brain show right ganglia acute to subacute ischemia stroke Without hemorrhage or mass effective. ECHO study is pending. We will continue PT and OT on today, continue baby aspirin and Plavix and Lipitor, Consult with social work for disposition planning Patient present slurring speech, left facial droop, left upper and lower extremity weakness, Which all suggestion patient had a stroke. We will finish MRI of brain and echo study. We will start with baby aspirin, Plavix, Lipitor. We will start with PT, OT, ST. We will allow Rise of the blood pressure for first 24 hours. We will continue neur check. We will consult social work for disposition (2) Hypertension Conclusion/Plan: 07/30 stable, resume home meds lisinopril Patient take lisinopril in the home, we will hold lisinopril now because the patient's stroke. We added hydralazine as needed. (3) Hypothyroidism Conclusion/Plan: Patient's TSH is normal, we will resume patient Synthroid (4) Chronic rheumatic arthritis Conclusion/Plan: 07/30 Patient Decline to have oxycodone for her pain control, she is thinking Tylenol enough For her pain control at this time Patient had chronic rheumatoid arthritis, patient take low dosage prednisone in the home, we will resume, we will have pain control for patient (5) GERD (gastroesophageal reflux disease) Conclusion/Plan: We will resume home Protonix. - Current Meds Current Meds: Current Medications Generic Name Dose Route Start Last Admin Trade Name Freq PRN Reason Stop Dose Admin Acetaminophen 650 mg 07/29/21 06:24 07/30/21 06:45 Acetaminophen 325 Mg Tablet PO 650 mg Q4HR PRN Administration Pain 1 to 4 Atorvastatin Calcium 40 mg 07/29/21 21:00 07/29/21 20:56 Atorvastatin 40 Mg Tablet PO 40 mg QPM SUSAN Administration Clopidogrel Bisulfate 75 mg 07/29/21 09:00 07/29/21 09:20 Clopidogrel 75 Mg Tablet PO 75 mg DAILY SUSAN Administration Levothyroxine Sodium 125 mcg 07/29/21 07:00 07/30/21 06:45 Levothyroxine 125 Mcg Tablet PO 125 mcg QDAC SUSAN Administration Ondansetron HCl 4 mg 07/29/21 06:24 07/29/21 07:59 Ondansetron 4 Mg/2 Ml Vial IVP 4 mg Q6HR PRN Administration Nausea / Vomiting Pantoprazole Sodium 40 mg 07/29/21 07:00 07/30/21 06:45 Pantoprazole 40 Mg Tablet PO 40 mg QDAC SUSAN Administration Prednisone 2.5 mg 07/29/21 08:00 07/29/21 09:19 Prednisone 5 Mg Tablet PO 2.5 mg DAILYWM SUSAN Administration Sodium Chloride 10 ml 07/29/21 09:00 07/30/21 02:09 Sodium Chloride Flush 0.9% 10 Ml Syringe IVP 10 ml 0100,0900,1700 SUSAN Administration - Lab Result Fish Bone Diagrams: 07/30/21 05:03 07/30/21 05:03 - Additional Planning My Orders: My Active Orders 07/29/21 08:46 hydrALAZINE INJ [Apresoline Inj] 10 mg IVP QID PRN 07/29/21 09:14 Code Status [OTHERS] Routine 07/29/21 Lunch Dysphagia - Puree [DIET] 07/29/21 21:00 Atorvastatin [Lipitor] 40 mg PO QPM 07/31/21 05:00 BMP - BASIC METABOLIC PANEL [CHEM] DAILYLAB CBC - COMP BLD CT W/AUTO DIFF [HEME] DAILYLAB 08/01/21 05:00 BMP - BASIC METABOLIC PANEL [CHEM] DAILYLAB CBC - COMP BLD CT W/AUTO DIFF [HEME] DAILYLAB 08/02/21 05:00 BMP - BASIC METABOLIC PANEL [CHEM] DAILYLAB CBC - COMP BLD CT W/AUTO DIFF [HEME] DAILYLAB 08/03/21 05:00 BMP - BASIC METABOLIC PANEL [CHEM] DAILYLAB CBC - COMP BLD CT W/AUTO DIFF [HEME] DAILYLAB 08/04/21 05:00 BMP - BASIC METABOLIC PANEL [CHEM] DAILYLAB CBC - COMP BLD CT W/AUTO DIFF [HEME] DAILYLAB Subjective - Subjective Patient Reports: Resting Comfortably Objective Vital Signs: Vital Signs - 24 hr 07/29/21 07/29/21 07/29/21 13:00 15:42 20:22 Temperature 37.0 C 37.1 C Heart Rate [ 71 81 69 Brachial] Heart Rate [ Radial] Respiratory 17 20 16 Rate Blood Pressure 132/78 H 154/93 H 141/89 H [Left Brachial artery] Blood Pressure [Left Radial artery] O2 Saturation 98 96 95 07/30/21 07/30/21 00:31 05:06 Temperature 36.9 C 37 C Heart Rate [ Brachial] Heart Rate [ 64 77 Radial] Respiratory 17 14 Rate Blood Pressure 146/78 H [Left Brachial artery] Blood Pressure 140/77 H [Left Radial artery] O2 Saturation 93 95 Oxygen O2 Source Room air I&O (Last 24 Hrs): Intake and Output Totals x24h 07/28/21 07/29/21 07/30/21 23:59 23:59 23:59 Intake Total 800 25 Output Total 450 100 Balance 350 -75 General: Alert, Cooperative, No acute distress HEENT: Atraumatic Neck: Supple Lymphatic: no adenopathy Neuro: Alert, Focal Deficits (Left facial droop, slurring speech, left upper and lower extremity weakness), Speech Slurred Cardiovascular: Regular rate, Normal S1, Normal S2 Respiratory: Chest non-tender, No respiratory distress Abdomen: Normal bowel sounds, Soft Extremities: Normal pulses - Results Results: Laboratory Results WBC 5.4 x10^3/uL (4.8-10.8) 07/30/21 05:03 RBC 4.13 10^6/uL (4.20-5.40) L 07/30/21 05:03 Hgb 12.3 g/dL (12.0-16.0) 07/30/21 05:03 Hct 36.8 % (37.0-47.0) L 07/30/21 05:03 MCV 89.1 fL (81.0-99.0) 07/30/21 05:03 MCH 29.8 pg (27.0-31.0) 07/30/21 05:03 MCHC 33.4 g/dL (32.0-36.0) 07/30/21 05:03 RDW 13.0 % (12.0-15.0) 07/30/21 05:03 Plt Count 179 10^3/uL (130-450) 07/30/21 05:03 MPV 9.7 fL (7.9-10.8) 07/30/21 05:03 Neut # (Auto) 3.6 10^3/uL (1.5-6.6) 07/30/21 05:03 Lymph # (Auto) 1.1 10^3/uL (1.5-3.5) L 07/30/21 05:03 [place] # (Auto) 0.6 10^3/uL (0.0-1.0) 07/30/21 05:03 Eos # (Auto) 0.1 10^3/uL (0.0-0.7) 07/30/21 05:03 Baso # (Auto) 0.0 10^3/uL (0.0-0.1) 07/30/21 05:03 Absolute Nucleated RBC 0.00 x10^3/uL 07/30/21 05:03 Nucleated RBC % 0.0 /100WBC 07/30/21 05:03 PT 11.1 secs (9.9-12.6) 07/29/21 02:37 INR 1.0 (0.8-1.2) 07/29/21 02:37 Sodium 137 mmol/L (135-145) 07/30/21 05:03 Potassium 4.0 mmol/L (3.5-5.0) 07/30/21 05:03 Chloride 104 mmol/L (101-111) 07/30/21 05:03 Carbon Dioxide 26 mmol/L (21-32) 07/30/21 05:03 Anion Gap 7.0 (6-13) 07/30/21 05:03 BUN 20 mg/dL (6-20) 07/30/21 05:03 Creatinine 0.9 mg/dL (0.4-1.0) 07/30/21 05:03 Estimated GFR (MDRD) 60 (>89) L 07/30/21 05:03 Glucose 92 mg/dL (70-100) 07/30/21 05:03 Calcium 9.0 mg/dL (8.5-10.3) 07/30/21 05:03 Total Bilirubin 0.6 mg/dL (0.2-1.0) 07/29/21 02:35 AST 15 IU/L (10-42) 07/29/21 02:35 ALT 12 IU/L (10-60) 07/29/21 02:35 Alkaline Phosphatase 35 IU/L (42-121) L 07/29/21 02:35 Total Protein 6.0 g/dL (6.7-8.2) L 07/29/21 02:35 Albumin 3.7 g/dL (3.2-5.5) 07/29/21 02:35 Globulin 2.3 g/dL (2.1-4.2) 07/29/21 02:35 Albumin/Globulin Ratio 1.6 (1.0-2.2) 07/29/21 02:35 Triglycerides 49 mg/dL (-149) 07/29/21 06:33 Cholesterol 156 mg/dL (-199) 07/29/21 06:33 LDL Cholesterol, Calc 98 mg/dL (-129) 07/29/21 06:33 VLDL Cholesterol 10 mg/dL 07/29/21 06:33 HDL Cholesterol 48 mg/dL (60-) L 07/29/21 06:33 LDL/HDL Ratio 2.0 (<4.4) 07/29/21 06:33 Cholesterol/HDL Ratio 3.3 (<4.4) 07/29/21 06:33 Lipase 42 U/L (22-51) 07/29/21 02:35 TSH 1.46 uIU/mL (0.34-5.60) 07/29/21 06:38 Nasal Adenovirus (PCR) NOT DETECTED 07/29/21 04:46 Nasal B. parapertussis DNA (PCR) NOT DETECTED 07/29/21 04:46 Nasal Coronavir 229E PCR NOT DETECTED 07/29/21 04:46 Nasal Coronavir HKU1 PCR NOT DETECTED 07/29/21 04:46 Nasal Coronavir NL63 PCR NOT DETECTED 07/29/21 04:46 Nasal Coronavir OC43 PCR NOT DETECTED 07/29/21 04:46 Nasal Enterovir/Rhinovir PCR NOT DETECTED 07/29/21 04:46 Nasal Influenza B PCR NOT DETECTED 07/29/21 04:46 Nasal Influenza A PCR NOT DETECTED 07/29/21 04:46 Nasal Parainfluen 1 PCR NOT DETECTED 07/29/21 04:46 Nasal Parainfluen 2 PCR NOT DETECTED 07/29/21 04:46 Nasal Parainfluen 3 PCR NOT DETECTED 07/29/21 04:46 Nasal Parainfluen 4 PCR NOT DETECTED 07/29/21 04:46 Nasal RSV (PCR) NOT DETECTED 07/29/21 04:46 Nasal B.pertussis DNA PCR NOT DETECTED 07/29/21 04:46 Nasal C.pneumoniae (PCR) NOT DETECTED 07/29/21 04:46 Ayaan Human Metapneumo PCR NOT DETECTED 07/29/21 04:46 Nasal M.pneumoniae (PCR) NOT DETECTED 07/29/21 04:46 Nasal SARS-CoV-2 (PCR) NOT DETECTED 07/29/21 04:46 - Procedures Procedures: Procedures CLOSED ENDOSCOPIC BIOPSY OF LARGE INTESTINE (11/07/13) ENDO RECTUM POLYPECTOMY (11/07/13) Sepsis Event Note (H) - Evaluation Current Stage of Sepsis: Ruled out ABX Reporting Has patient been on IV antibiotics over the past 48 hours?: No Current Medications - Current Medications Current Medications: Active Medications Acetaminophen (Acetaminophen 325 Mg Tablet) 650 mg PO Q4HR PRN PRN Reason: Pain 1 to 4 Last Admin: 07/30/21 06:45 Dose: 650 mg Aspirin (Aspirin Ec 81 Mg Tablet) 81 mg PO DAILY [facility] Atorvastatin Calcium (Atorvastatin 40 Mg Tablet) 40 mg PO QPM [facility] Last Admin: 07/29/21 20:56 Dose: 40 mg Clopidogrel Bisulfate (Clopidogrel 75 Mg Tablet) 75 mg PO DAILY [facility] Last Admin: 07/29/21 09:20 Dose: 75 mg Docusate Sodium (Docusate Sodium 250 Mg Capsule) 250 - 500 mg PO DAILY [facility] Folic Acid (Folic Acid 1 Mg Tablet) 1 mg PO DAILY [facility] Hydralazine HCl (Hydralazine Inj 20 Mg/Ml Vial) 10 mg IVP QID PRN PRN Reason: Hypertensive Emergency Levothyroxine Sodium (Levothyroxine 125 Mcg Tablet) 125 mcg PO QDAC [facility] Last Admin: 07/30/21 06:45 Dose: 125 mcg Lisinopril (Lisinopril 20 Mg Tablet) 40 mg PO DAILY [facility] Non-Formulary Medication (Cholecalciferol (Vitamin D3) [Vitamin D3]) 2,000 unit PO DAILY [facility] Ondansetron HCl (Ondansetron 4 Mg/2 Ml Vial) 4 mg IVP Q6HR PRN PRN Reason: Nausea / Vomiting Last Admin: 07/29/21 07:59 Dose: 4 mg Pantoprazole Sodium (Pantoprazole 40 Mg Tablet) 40 mg PO QDAC [facility] Last Admin: 07/30/21 06:45 Dose: 40 mg Polyethylene Glycol (Polyethylene Glycol 3350 17 Gm Packet) 17 gm PO DAILY [facility] Prednisone (Prednisone 5 Mg Tablet) 2.5 mg PO DAILYWM [facility] Last Admin: 07/29/21 09:19 Dose: 2.5 mg Senna (Senna 8.6 Mg Tablet) 8.6 - 17.2 mg PO DAILY [facility] Sodium Chloride (Sodium Chloride Flush 0.9% 10 Ml Syringe) 10 ml IVP PRN PRN PRN Reason: NEEDED PER PROVIDER ORDERS Sodium Chloride (Sodium Chloride Flush 0.9% 10 Ml Syringe) 10 ml IVP 0100,0900,1700 SUSAN Last Admin: 07/30/21 02:09 Dose: 10 ml Cholecalciferol (Vitamin D3) [Vitamin D3] 2,000 unit PO DAILY 08/01/13 Folic Acid 1 mg PO DAILY 08/01/13 Levothyroxine Sodium [Synthroid] 125 mcg PO DAILY 08/01/13 Omeprazole [PriLOSEC] 20 mg PO DAILY 08/01/13 lisinopriL [Zestril] 40 mg PO DAILY 08/01/13 Vits A,C,E/Lutein/Minerals [Ocuvite with Lutein Tablet] 1 tablet PO DAILY 11/06/13 Acetaminophen [Tylenol] 650 mg PO Q6H PRN 07/29/21 Prednisone [Eliecer] 3 mg PO DAILY 07/29/21
[2021-07-30] MEDS: CHOLECALCIFEROL 25 MCG TABLET PO SCH (08:31)
[2021-07-30] MEDS: predniSONE 5 MG TABLET PO SCH (08:32)
[2021-07-30] MEDS: ASPIRIN EC 81 MG TABLET PO SCH (08:32)
[2021-07-30] MEDS: SENNA 8.6 MG TABLET PO SCH (08:32)
[2021-07-30] MEDS: lisinopriL 20 MG TABLET PO SCH (08:32)
[2021-07-30] MEDS: CLOPIDOGREL 75 MG TABLET PO SCH (08:33)
[2021-07-30] MEDS: DOCUSATE SODIUM 250 MG CAPSULE PO SCH (08:33)
[2021-07-30] MEDS: polyethylene glycoL 3350 17 GM PACKET PO SCH (08:34)
[2021-07-30] MEDS ORDERED: FOLIC ACID 1 MG TABLET PO SCH (09:00)
[2021-07-30] MEDS: ATORVASTATIN 40 MG TABLET PO SCH (21:48)
[2021-07-31] MEDS: SODIUM CHLORIDE FLUSH 0.9% 10 ML SYRINGE IVP SCH ×2 (00:40→10:14)
[2021-07-31 06:30] LABS: BASOPHILS % (AUTO) 0.7 %; EOSINOPHILS # (AUTO) 0.1 10^3/uL (0.0-0.7); EOSINOPHILS % (AUTO) 1.5 %; HCT - HEMATOCRIT 38.4 % (37.0-47.0); HGB - HEMOGLOBIN 12.9 g/dL (12.0-16.0); LYMPHOCYTES % (AUTO) 16.6 %; MEAN CORPUSCULAR HEMOGLOBIN 29.4 pg (27.0-31.0); MEAN CORPUSCULAR HGB CONC 33.6 g/dL (32.0-36.0); MEAN CORPUSCULAR VOLUME 87.5 fL (81.0-99.0); MEAN PLATELET VOLUME 10.2 fL (7.9-10.8); MONOCYTES # (AUTO) 0.7 10^3/uL (0.0-1.0); MONOCYTES % (AUTO) 11.8 %; NEUTROPHILS % (AUTO) 69.2 %; PLT - PLATELET COUNT 196 10^3/uL (130-450); RED BLOOD COUNT 4.39 10^6/uL (4.20-5.40); RED CELL DISTRIBUTION WIDTH 12.8 % (12.0-15.0); WHITE BLOOD COUNT 5.8 x10^3/uL (4.8-10.8)
[2021-07-31 06:38] LABS: CALCIUM 9.4 mg/dL (8.5-10.3); CREATININE 0.9 mg/dL (0.4-1.0); POTASSIUM 3.8 mmol/L (3.5-5.0)
[2021-07-31] MEDS: LEVOTHYROXINE 125 MCG TABLET PO SCH (06:41)
[2021-07-31] MEDS: ONDANSETRON 4 MG/2 ML VIAL IVP PRN (06:42)
[2021-07-31] MEDS: PANTOPRAZOLE 40 MG TABLET PO SCH (06:42)
[2021-07-31] MEDS: ACETAMINOPHEN 325 MG TABLET PO PRN ×2 (06:42→13:15)
[2021-07-31] MEDS ORDERED: PRENATAL VITAMIN TABLET PO SCH (08:00)
--- NOTE | 2021-07-31 08:29 | PHARMACY PROGRESS NOTE ---
- Best Possible Medication History Admit Date and Time: 07/29/21914 Processed by: Pharmacy Medication History completed: Yes Secondary Source(s): Physician records, Pharmacy records, Insurance records As the person ultimately responsible for medication therapy, providers are able to order a medication from an existing home medication list in [facility] via the "Reconcile Routine" prior to Confirmation of that medication by ground crewman mission support. Such practice is discouraged except when the physician, in their clinical judgment, deems that a medical need exists for a medication without regard to previous use.
--- NOTE | 2021-07-31 09:27 | PROVIDER PROGRESS NOTE ---
Assessment/Plan - Problem List (1) Stroke Assessment/Plan: Patient presented to the hospital on 07/29/21 with left side weakness, slurred speech and facial droop. CT of head was negative for hemorrhage. 07/30/21 MRI of brain show "right ganglia acute to subacute ischemia stroke without hemorrhage or mass effective". Cardiac echo from 07/30/21 showed ejection fraction 65-70%, mild left ventricular Plan: Continue with PT and OT. Continue with Aspirin 81mg po daily, Plavix 75mg PO daily, and Lipitor Continue to work with social work program coordinator for discharge to rehab facility. - Current Meds Current Meds: Current Medications Generic Name Dose Route Start Last Admin Trade Name Freq PRN Reason Stop Dose Admin Acetaminophen 650 mg 07/29/21 06:24 07/31/21 06:42 Acetaminophen 325 Mg Tablet PO 650 mg Q4HR PRN Administration Pain 1 to 4 Aspirin 81 mg 07/30/21 09:00 07/30/21 08:32 Aspirin Ec 81 Mg Tablet PO 81 mg DAILY SUSAN Administration Atorvastatin Calcium 40 mg 07/29/21 21:00 07/30/21 21:48 Atorvastatin 40 Mg Tablet PO 40 mg QPM SUSAN Administration Cholecalciferol 50 mcg 07/30/21 09:00 07/30/21 08:31 Cholecalciferol 25 Mcg Tablet PO 50 mcg DAILY SUSAN Administration Clopidogrel Bisulfate 75 mg 07/29/21 09:00 07/30/21 08:33 Clopidogrel 75 Mg Tablet PO 75 mg DAILY SUSAN Administration Docusate Sodium 250 - 500 mg 07/30/21 09:00 07/30/21 08:33 Docusate Sodium 250 Mg Capsule PO 250 mg DAILY SUSAN Administration Levothyroxine Sodium 125 mcg 07/29/21 07:00 07/31/21 06:41 Levothyroxine 125 Mcg Tablet PO 125 mcg QDAC SUSAN Administration Lisinopril 40 mg 07/30/21 09:00 07/30/21 08:32 Lisinopril 20 Mg Tablet PO 40 mg DAILY SUSAN Administration Ondansetron HCl 4 mg 07/29/21 06:24 07/31/21 06:42 Ondansetron 4 Mg/2 Ml Vial IVP 4 mg Q6HR PRN Administration Nausea / Vomiting Pantoprazole Sodium 40 mg 07/29/21 07:00 07/31/21 06:42 Pantoprazole 40 Mg Tablet PO 40 mg QDAC SUSAN Administration Polyethylene Glycol 17 gm 07/30/21 09:00 07/30/21 08:34 Polyethylene Glycol 3350 17 Gm Packet PO 17 gm DAILY SUSAN Administration Prednisone 2.5 mg 07/29/21 08:00 07/30/21 08:32 Prednisone 5 Mg Tablet PO 2.5 mg DAILYWM SUSAN Administration Senna 8.6 - 17.2 mg 07/30/21 09:00 07/30/21 08:32 Senna 8.6 Mg Tablet PO 8.6 mg DAILY SUSAN Administration Sodium Chloride 10 ml 07/29/21 09:00 07/31/21 00:40 Sodium Chloride Flush 0.9% 10 Ml Syringe IVP 10 ml 0100,0900,1700 SUSAN Administration - Lab Result Fish Bone Diagrams: 07/31/21 05:47 07/31/21 05:47 Objective Vital Signs: Vital Signs - 24 hr 07/30/21 07/30/21 07/30/21 11:22 11:25 11:45 Temperature 36.6 C Heart Rate [ Brachial] Heart Rate [ Monitoring electrodes] Heart Rate [ 101 H Radial] Heart Rate [ 84 84 Supine] Respiratory 18 Rate Blood Pressure 169/108 H 169/108 H [Activity] Blood Pressure [Left Brachial artery] Blood Pressure 169/108 H [Left Radial artery] Blood Pressure [Right Brachial artery] Blood Pressure 188/94 H 188/94 H [Supine] O2 Saturation 93 07/30/21 07/30/21 07/31/21 16:36 20:45 00:37 Temperature 37.1 C 37.1 C 36.8 C Heart Rate [ 85 83 84 Brachial] Heart Rate [ Monitoring electrodes] Heart Rate [ Radial] Heart Rate [ Supine] Respiratory 16 16 16 Rate Blood Pressure [Activity] Blood Pressure 154/93 H [Left Brachial artery] Blood Pressure [Left Radial artery] Blood Pressure 184/94 H 159/82 H [Right Brachial artery] Blood Pressure [Supine] O2 Saturation 94 97 95 07/31/21 07/31/21 05:41 07:51 Temperature 36.8 C 36.6 C Heart Rate [ 82 Brachial] Heart Rate [ 82 Monitoring electrodes] Heart Rate [ Radial] Heart Rate [ Supine] Respiratory 16 18 Rate Blood Pressure [Activity] Blood Pressure [Left Brachial artery] Blood Pressure [Left Radial artery] Blood Pressure 150/73 H 148/83 H [Right Brachial artery] Blood Pressure [Supine] O2 Saturation 95 95 Oxygen O2 Source Room air I&O (Last 24 Hrs): Intake and Output Totals x24h 07/29/21 07/30/21 07/31/21 23:59 23:59 23:59 Intake Total 800 845 550 Output Total 450 1500 200 Balance 350 -655 350 - Results Results: Laboratory Results WBC 5.8 x10^3/uL (4.8-10.8) 07/31/21 05:47 RBC 4.39 10^6/uL (4.20-5.40) 07/31/21 05:47 Hgb 12.9 g/dL (12.0-16.0) 07/31/21 05:47 Hct 38.4 % (37.0-47.0) 07/31/21 05:47 MCV 87.5 fL (81.0-99.0) 07/31/21 05:47 MCH 29.4 pg (27.0-31.0) 07/31/21 05:47 MCHC 33.6 g/dL (32.0-36.0) 07/31/21 05:47 RDW 12.8 % (12.0-15.0) 07/31/21 05:47 Plt Count 196 10^3/uL (130-450) 07/31/21 05:47 MPV 10.2 fL (7.9-10.8) 07/31/21 05:47 Neut # (Auto) 4.0 10^3/uL (1.5-6.6) 07/31/21 05:47 Lymph # (Auto) 1.0 10^3/uL (1.5-3.5) L 07/31/21 05:47 [place] # (Auto) 0.7 10^3/uL (0.0-1.0) 07/31/21 05:47 Eos # (Auto) 0.1 10^3/uL (0.0-0.7) 07/31/21 05:47 Baso # (Auto) 0.0 10^3/uL (0.0-0.1) 07/31/21 05:47 Absolute Nucleated RBC 0.00 x10^3/uL 07/31/21 05:47 Nucleated RBC % 0.0 /100WBC 07/31/21 05:47 PT 11.1 secs (9.9-12.6) 07/29/21 02:37 INR 1.0 (0.8-1.2) 07/29/21 02:37 Sodium 138 mmol/L (135-145) 07/31/21 05:47 Potassium 3.8 mmol/L (3.5-5.0) 07/31/21 05:47 Chloride 103 mmol/L (101-111) 07/31/21 05:47 Carbon Dioxide 25 mmol/L (21-32) 07/31/21 05:47 Anion Gap 10.0 (6-13) 07/31/21 05:47 BUN 19 mg/dL (6-20) 07/31/21 05:47 Creatinine 0.9 mg/dL (0.4-1.0) 07/31/21 05:47 Estimated GFR (MDRD) 60 (>89) L 07/31/21 05:47 Glucose 103 mg/dL (70-100) H 07/31/21 05:47 Calcium 9.4 mg/dL (8.5-10.3) 07/31/21 05:47 Total Bilirubin 0.6 mg/dL (0.2-1.0) 07/29/21 02:35 AST 15 IU/L (10-42) 07/29/21 02:35 ALT 12 IU/L (10-60) 07/29/21 02:35 Alkaline Phosphatase 35 IU/L (42-121) L 07/29/21 02:35 Total Protein 6.0 g/dL (6.7-8.2) L 07/29/21 02:35 Albumin 3.7 g/dL (3.2-5.5) 07/29/21 02:35 Globulin 2.3 g/dL (2.1-4.2) 07/29/21 02:35 Albumin/Globulin Ratio 1.6 (1.0-2.2) 07/29/21 02:35 Triglycerides 49 mg/dL (-149) 07/29/21 06:33 Cholesterol 156 mg/dL (-199) 07/29/21 06:33 LDL Cholesterol, Calc 98 mg/dL (-129) 07/29/21 06:33 VLDL Cholesterol 10 mg/dL 07/29/21 06:33 HDL Cholesterol 48 mg/dL (60-) L 07/29/21 06:33 LDL/HDL Ratio 2.0 (<4.4) 07/29/21 06:33 Cholesterol/HDL Ratio 3.3 (<4.4) 07/29/21 06:33 Lipase 42 U/L (22-51) 07/29/21 02:35 TSH 1.46 uIU/mL (0.34-5.60) 07/29/21 06:38 Nasal Adenovirus (PCR) NOT DETECTED 07/29/21 04:46 Nasal B. parapertussis DNA (PCR) NOT DETECTED 07/29/21 04:46 Nasal Coronavir 229E PCR NOT DETECTED 07/29/21 04:46 Nasal Coronavir HKU1 PCR NOT DETECTED 07/29/21 04:46 Nasal Coronavir NL63 PCR NOT DETECTED 07/29/21 04:46 Nasal Coronavir OC43 PCR NOT DETECTED 07/29/21 04:46 Nasal Enterovir/Rhinovir PCR NOT DETECTED 07/29/21 04:46 Nasal Influenza B PCR NOT DETECTED 07/29/21 04:46 Nasal Influenza A PCR NOT DETECTED 07/29/21 04:46 Nasal Parainfluen 1 PCR NOT DETECTED 07/29/21 04:46 Nasal Parainfluen 2 PCR NOT DETECTED 07/29/21 04:46 Nasal Parainfluen 3 PCR NOT DETECTED 07/29/21 04:46 Nasal Parainfluen 4 PCR NOT DETECTED 07/29/21 04:46 Nasal RSV (PCR) NOT DETECTED 07/29/21 04:46 Nasal B.pertussis DNA PCR NOT DETECTED 07/29/21 04:46 Nasal C.pneumoniae (PCR) NOT DETECTED 07/29/21 04:46 Ayaan Human Metapneumo PCR NOT DETECTED 07/29/21 04:46 Nasal M.pneumoniae (PCR) NOT DETECTED 07/29/21 04:46 Nasal SARS-CoV-2 (PCR) NOT DETECTED 07/29/21 04:46 - Procedures Procedures: Procedures CLOSED ENDOSCOPIC BIOPSY OF LARGE INTESTINE (11/07/13) ENDO RECTUM POLYPECTOMY (11/07/13) Sepsis Event Note (H) - Evaluation Current Stage of Sepsis: Ruled out ABX Reporting Has patient been on IV antibiotics over the past 48 hours?: No
[2021-07-31] MEDS: predniSONE 5 MG TABLET PO SCH (09:57)
--- NOTE | 2021-07-31 09:57 | Discharge Plan ---
"Discharge Plan for SNF / [facility] - Discharge Plan And Transition Orders Problem Reviewed?: Yes Disposition: 03 SNF DC/Xfer Condition: Fair Allergies and Adverse Reactions: Allergies Allergy/AdvReac Type Severity Reaction Status Date / Time diphenhydramine HCl * Allergy Rash Verified 07/29/21 02:26 [From Benadryl] Sulfa (Sulfonamide Allergy Rash Verified 07/29/21 02:26 Antibiotics) Latex, Natural Rubber AdvReac Unknown Verified 07/29/21 02:26 morphine AdvReac Emesis Verified 07/29/21 02:26 Health Concerns: You were admitted on 07/29/2021 with left-sided weakness, left facial droop and slurred speech. Work-up included a CT of the head and MRI which showed A stroke in the right ganglia. Seen by physical therapy and determined to need rehab at a fpc facility. Consequently you are being discharged to [place] for rehab. You were started on baby aspirin and Atorvastatin 40 mg p.o.daily You will take Plavix 75 mg p.o. daily for 19 more days You may follow-up with your primary care physician within 7 to 10 days or as needed. - SNF / [facility] Transition Orders Admit to (Facility): [facility] Discharge Diagnosis: Ischemic CVA Pretension Hypothyroidism Chronic rheumatic arthritis GERD Medicare Certification Statement: I certify that Post Hospital fpc care is medically necessary on a continuing basis for any of the conditions for which she/he is receiving care during hospitalization. Notify PCP of admission and forward orders to primary provider for signature. Weight on admission and: Daily Call PCP immediately if weight increases by: 2.5 kg Other Notification Orders: Call PCP immediately if patient develops dyspnea, chest pain/tightness or edema. House Bowel Program: Yes Additional Bowel Program Orders: If no BM after 2 days, nurse may give M.O.M. 30ml PO PRN and/or ducolax Supp 1 ND and/or LV 250mg P.O., and/or senna 1-2 tabs PO. On day 3 nurse may give repeat above order until residents constipation is resolved. Medication Orders: PLEASE REFER TO THE DISCHARGE MEDICATION LIST. - Medications New Prescriptions: Atorvastatin [Lipitor] 40 mg PO QPM 30 Days #30 tablet Clopidogrel [Plavix] 75 mg PO DAILY 19 Days #19 tablet - Diet Type: Geriatric Texture: Dysphagia [facility] May have monthly special meal: Yes - Therapies | Activity Therapy: Evaluation | Treat if indicated: Speech, PT, OT, Swallowing / ST Rehabilitation Potential: Maximize functional status Activity: Per Therapy"
--- NOTE | 2021-07-31 09:57 | DISCHARGE SUMMARY ---
Discharge Summary Admit Date: 07/29/21 Discharge Date: 07/31/21 Discharging Provider: Janee Elias Primary Care Provider: Stefany Krause Code Status: Do Not Attempt Resuscitation Condition at Discharge: Fair Discharge Disposition: SNF DC/Xfer Discharge Facility Name: [facility] - DIAGNOSES Admission Diagnoses: Stroke-like symptoms Hypertension Hypothyroidism Chronic rheumatic arthritis GERD Discharge Diagnoses with Status of Each Condition: Ischemic Stroke: Subacute. Left-sided deficits. Patient going to rehab Hypertension: Chronic. On lisinopril Hypothyroidism: Chronic. On synthroid Chronic rheumatic arthritis GERD: Chronic - HPI History of Present Illness: Per HPI: This is a 86 years old female with a past medical history significant noted for hypertension, rheumatoid arthritis on low dosage prednisone, GERD, Hypothyroidism, Who present to the ER complain of left facial droop, slurring speech, and left-sided weakness. pt present significant slurred speech now. her daughter at the bedside help her mother. She report pt start with facial droop and tongue numbness at 6pm on yesterday afternoon, then her condition persistent and worsening, which brought her to ER for evaluation. Beside of her left facial droop and slurred speech, she also present left side upper and lower Extremity weakness. Patient believe she has a stroke. CTA of head and neck Show no acute intracranial disease process, no large vessel occlusion, Hemodynamically significant only vascular stenosis, Vascular dissection or aneurysm. Given above medical conditions, medical team was consulted for admission. Discussed the care goal with patient and her daughter at the bedside, patient hope to have DNR. - HOSPITAL COURSE Hospital Course: MRI of the brain done on 07/29/2021 showed acute to subacute infarct in the right basal ganglia without intracranial hemorrhage or mass-effect. Atrophy and chronic ischemic changes were also noted. She had a 2D echocardiogram done on 07/30/2021 which showed overall left ventricular systolic function is normal with an ejection fraction of 65 to 70%. There was no mitral stenosis or mitral regurgitation. There was moderate aortic valve sclerosis but no evidence of aortic stenosis or aortic regurgitation. There was no pericardial effusion. She had significant left-sided deficits. She was seen by physical therapy during her hospital stay. It was determined that she could benefit from rehab. She was started on atorvastatin 40 mg p.o. every afternoon, baby aspirin daily and Plavix 75 mg p.o. daily for 19 more days. After a 2-day hospital stay she was discharged to [facility] for further therapy. - ALLERGIES Allergies/Adverse Reactions: Allergies Allergy/AdvReac Type Severity Reaction Status Date / Time diphenhydramine HCl * Allergy Rash Verified 07/29/21 02:26 [From Benadryl] Sulfa (Sulfonamide Allergy Rash Verified 07/29/21 02:26 Antibiotics) Latex, Natural Rubber AdvReac Unknown Verified 07/29/21 02:26 morphine AdvReac Emesis Verified 07/29/21 02:26 - MEDICATIONS Home Medications: Ambulatory Orders Medication Instructions Recorded Confirmed Cholecalciferol (Vitamin D3) 2,000 unit PO DAILY 08/01/13 07/29/21 [Vitamin D3] Folic Acid 1 mg PO DAILY 08/01/13 07/29/21 Levothyroxine Sodium [Synthroid] 125 mcg PO DAILY 08/01/13 07/29/21 Omeprazole [PriLOSEC] 20 mg PO DAILY 08/01/13 07/29/21 lisinopriL [Zestril] 40 mg PO DAILY 08/01/13 07/29/21 Vits A,C,E/Lutein/Minerals 1 tablet PO DAILY 11/06/13 07/29/21 [Ocuvite with Lutein Tablet] Acetaminophen [Tylenol] 650 mg PO Q6H PRN 07/29/21 07/29/21 Aspirin EC [Ecotrin] 81 mg PO DAILY tablet 07/31/21 Atorvastatin [Lipitor] 40 mg PO QPM 30 Days #30 tablet 07/31/21 Clopidogrel [Plavix] 75 mg PO DAILY 19 Days #19 tablet 07/31/21 predniSONE [Deltasone] 3 mg PO 0800 07/31/21 07/31/21 - PHYSICAL EXAM AT DISCHARGE General Appearance: positive: Alert, Mild distress Eyes Bilateral: positive: PERRL, EOMI ENT: positive: No signs of dehydration Neck: positive: No JVD, Trachea midline Respiratory: positive: Chest non-tender, No respiratory distress, Breath sounds nml. negative: Wheezes, Rales, Rhonchi Cardiovascular: positive: Regular rate & rhythm, No murmur Abdomen: positive: Non-tender, No organomegaly, Nml bowel sounds, No distention. negative: Guarding, Rebound Back: positive: Nml inspection Skin: positive: Color nml, No rash, Warm, Dry Extremities: positive: No pedal edema, Other (right shoulder joint pain due to arthritis) Neurologic/Psychiatric: positive: Oriented x3, Mood/affect nml, Weakness (left upper and lower extremity weakness), Facial droop (left) - LABS Result Diagrams: 07/31/21 05:47 07/31/21 05:47 - SEPSIS Current Stage of Sepsis: Ruled out - TIME SPENT Time Spent in Discharge (Minutes): 20
[2021-07-31] MEDS: ASPIRIN EC 81 MG TABLET PO SCH (10:00)
[2021-07-31] MEDS: CHOLECALCIFEROL 25 MCG TABLET PO SCH (10:01)
[2021-07-31] MEDS: CLOPIDOGREL 75 MG TABLET PO SCH (10:05)
[2021-07-31] MEDS: lisinopriL 20 MG TABLET PO SCH (10:06)
[2021-07-31] MEDS: DOCUSATE SODIUM 250 MG CAPSULE PO SCH (10:11)
[2021-07-31] MEDS: polyethylene glycoL 3350 17 GM PACKET PO SCH (10:12)
[2021-07-31] MEDS: SENNA 8.6 MG TABLET PO SCH (10:12)
[2021-07-31 12:20] VITALS: BP 177/82
== END 2021-07-31 14:30 | DRG 65 ==
LOC: EDUNIT# → ED 02:19 → MS2 06:24 → OBSVTOIN 09:15
PROVIDERS: ADMIT Nurse Practitioner Gerontology; ATTEND Internal Medicine
DX: K14.8 Other diseases of tongue (principal); R20.0 Anesthesia of skin; I63.9 Cerebral infarction, unspecified; R42 Dizziness and giddiness; R47.02 Dysphasia; R53.1 Weakness; G81.94 Hemiplegia, unspecified affecting left nondominant side; M19.90 Unspecified osteoarthritis, unspecified site; M25.512 Pain in left shoulder; M35.3 Polymyalgia rheumatica; Z20.822 Contact with and (suspected) exposure to COVID-19; R29.810 Facial weakness; R47.81 Slurred speech; I10 Essential (primary) hypertension; I35.8 Other nonrheumatic aortic valve disorders; M06.9 Rheumatoid arthritis, unspecified; K21.9 Gastro-esophageal reflux disease without esophagitis; K59.09 Other constipation; E03.9 Hypothyroidism, unspecified; Z79.52 Long term (current) use of systemic steroids; Z79.82 Long term (current) use of aspirin; Z79.890 Hormone replacement therapy; Z79.899 Other long term (current) drug therapy; Z80.9 Family history of malignant neoplasm, unspecified; Z82.49 Family history of ischemic heart disease and other diseases of the circulatory system; Z82.3 Family history of stroke; Z88.2 Allergy status to sulfonamides; Z88.5 Allergy status to narcotic agent; Z88.8 Allergy status to other drugs, medicaments and biological substances; Z91.040 Latex allergy status
CPT/HCPCS: 36415; 70496; 70498; 70544; 70553; 80048; 80053; 80061; 83690; 84443; 85025; 85610; 87631; 92507; 92523; 92610; 93005; 93306; 96374; 97162; 97166; 99285; A9270; A9585; J2060; J7512; Q9967; 0202U; 83721

== ENCOUNTER 2022-02-23 11:51 | Outpatient (CLI) | payer MEDICARE, BC ==
[2022-02-23 12:19] LABS: MAGNESIUM 1.5 mg/dL (1.7-2.8); POTASSIUM 3.4 mmol/L (3.5-5.0)
== END 2022-02-23 11:52 | disposition home or self-care (01) ==
LOC: LAB 11:51
PROVIDERS: ATTEND Registered Nurse
DX: R19.7 Diarrhea, unspecified (principal); E83.42 Hypomagnesemia
CPT/HCPCS: 36415; 83735; 84132